=== PATIENT | female | born 1990 | race Caucasian/White ===

== ENCOUNTER 2020-01-13 20:18 | Emergency (ER) | payer SELFPAY ==
[2020-01-13 20:23] VITALS: BP 137/72; PULSE 59; RESP 16; TEMP 36.2; O2SAT 98; BMI 31.9
--- NOTE | 2020-01-13 20:26 | ED_ITS ---
HPI - Extremity Problem General: Chief complaint: Extremity Problem,Nontraumatic Stated complaint: right leg injury Time Seen by Provider: 01/13/20 20:23 Source: patient Mode of arrival: ambulatory Limitations: no limitations History of Present Illness: HPI Narrative: 29-year-old female comes in today with right lower leg pain on the lateral side. Patient reports that when she moves her ankle she feels stiffness and grating. Patient denies any injury. Patient has reported a change in activity to where she is working to jobs a day for the last couple of weeks where she stands 17 hours on her feet. Patient reports pain started last week. Patient appears well. Patient appears no acute distress. MD Complaint: extremity pain Review of Systems General: Reports: 10 or more systems reviewed and unremarkable except in HPI and below Musc: Reports: extremity pain PFSH ED PFSH: Medical History (Updated 01/13/20 @ 20:39 by CHASE Cam) Chronic post-traumatic stress disorder (PTSD) Moderate episode of recurrent major depressive disorder Family History (Updated 02/15/19 @ 16:10 by Isabel Villavicencio RN) Mother Thyroid condition Breast cancer Hypertension Grandfather Thyroid condition Maternal Family/Other Thyroid condition Maternal Aunt Father Lymphoma Grandmother Hypertension Maternal Social History (Updated 03/23/19 @ 10:58 by David Garduno LPN) Smoking and tobacco status: current every day smoker cigarettes Packs smoked per day: 1 Years cigarettes smoked: 21 Quit status (tobacco): has tried quititng Number of times tried to quit tobacco: 3 Second hand smoke exposure: No Smoking risk assessment/counseling performed?: Yes Tobacco counseling given: counseling >3 minutes Alcohol intake: never Additional social history: Well balanced diet Physical Exam Const: COMMON NORMALS: no acute distress and patient oriented x3 GENERAL APPEARANCE: cooperative HENMT: COMMON NORMALS: normocephalic and Normal external nose present HEAD & SCALP: normal to inspection and normocephalic NOSE: Normal external nose present Eye: GENERAL EYE: appearance normal, both eyes and all related structures Neck/C-Spine: COMMON NORMALS: full ROM Chest: COMMONS NORMALS: normal inspection of the chest Resp: COMMON NORMALS: normal respiratory effort EFFORT & INSPECTION: Yes able to speak in complete sentences Cardio: COMMON NORMALS: regular rate and regular rhythm RATE: regular rate RHYTHM: regular rhythm GI: COMMON NORMALS: non-tender Back/Pelvis: COMMON NORMALS: thoracic and lumbar spine normal to inspection Extremity: NARRATIVE EXTREMITY EXAM: Tenderness noted to the distal lateral right lower leg. Mild swelling is noted to the area of tenderness. No obvious deformity is noted in the bone. Distal pulses are intact. Capillary refill is normal. Neuro: COMMON NORMALS: patient oriented x3 and moves all extremities Psych: COMMON NORMALS: mental status grossly normal and cooperative Skin: COMMON NORMALS: no rashes or lesions noted GENERAL SKIN EXAM: no rashes or lesions noted Course Vital Signs: Vital signs: Vital Signs Temperature 97.2 F L 01/13/20 20:23 Pulse Rate 59 L 01/13/20 20:23 Respiratory Rate 16 01/13/20 20:23 Blood Pressure 137/72 01/13/20 20:23 Pulse Oximetry 98 01/13/20 20:23 MDM - Extremity (Nontraumatic) MDM Narrative: Medical decision making narrative: Patient comes in with complaints of right lower leg pain. On exam there is some mild tenderness and swelling to the right lateral distal leg. Normal range of motion is noted with activity. Pulses are intact. Differential diagnosis includes but not limited to shinsplints, tendinitis, sprain. Patient was started on diclofenac for pain and inflammation. Patient was written for orthopedic boot to support the ankle and keep it in the neutral position for concerns of tendinitis. Patient reports understanding of care plan and need for follow-up or return to the ER. Discharge Plan Discharge Patient Disposition: Home Clinical Impression: Calcific tendinitis, right lower leg Condition: Stable Prescriptions: New diclofenac sodium 75 mg tablet,delayed release (DR/EC) 75 mg PO BID Qty: 20 RF: 0 No Action fluoxetine [Prozac] 20 mg capsule 20 mg PO DAILY Qty: 30 RF: 1 hydroxyzine pamoate 50 mg capsule 50 mg PO BID PRN (Reason: anxiety) Qty: 60 RF: 1 buspirone 10 mg tablet 10 mg PO BID Qty: 60 RF: 1 Discharge Orders: Discharge Order (Routine); Ordered 01/13/20 Ordered By: Juancho Mack Discharge Diet: Usual diet Discharge Activity: Increase activity as tolerated Patient Instructions: Tendinitis (ED) Activity Restrictions/Additional Instructions: Activity as tolerated. Wear orthopedic walking boot for the next 2 weeks. Wear shoes which have good cushion and support. Follow-up with primary care for further treatment and evaluation. Follow-up with mechanical lead for further treatment and evaluation. Return to the emergency department for new concerns. Coding Level of Care Code ED [employer] Administrator for Andreas Torre Exam Comprehensive
== END 2020-01-13 20:52 | disposition home or self-care (01) ==
PROVIDERS: Emergency Provider Nurse Practitioner Family
DX: M65.261 Calcific tendinitis, right lower leg (principal); F17.210 Nicotine dependence, cigarettes, uncomplicated
CPT/HCPCS: 12345; 99281; 99282

== ENCOUNTER 2022-07-11 09:50 | Emergency (ER) | payer MEDICAID, SELFPAY ==
[2022-07-11 10:17] VITALS: BP 121/84; PULSE 68; RESP 18; TEMP 36.6; O2SAT 98; BMI 30.3
--- NOTE | 2022-07-11 10:46 | ED_ITS ---
HPI - Nausea/Vomiting/Diarrhea General: Chief complaint: Nausea/Vomiting/Diarrhea Stated complaint: n/v 2xmonths, tingling fingers Time Seen by Provider: 07/11/22 09:51 Source: patient Mode of arrival: ambulatory Limitations: no limitations History of Present Illness: Patient is a nice 32-year-old female presents to ED today with complaints of nausea, vomiting, and epigastric discomforts over the past 2 months or so. She states nausea seems to be worse in the morning when she wakes up and states a bout 50% of the day she will actively vomit in the mornings. She states nausea seems to slowly improve as the day progresses. She states she feels like she has not been able to eat adequately secondary to the discomfort she gets in her abdomen and due to her lack of appetite secondary to the nausea. She feels like her symptoms are exacerbated by eating greasy/spicy foods. She states she has been eating broccoli salads this seems to not aggravate her symptoms. She also reports damion colored stools. She reports chronic ibuprofen use stating she has been using approximately 800 mg of ibuprofen daily over the past 2 years. Also reports chronic marijuana use and vaping. She has not noticed any bloody emesis. Denies any episodes of black or tarry stools. Denies alcohol use. MD elicited complaint: nausea, vomiting and abdominal pain Onset (ago): month(s) Associated nausea: Yes Associated abdominal pain: Yes Location of pain: Epigastric Radiation: epigastric Pain consistency: intermittent Severity: mild Exacerbating factors: eating Relieving factors: none Context: marijuana use Associated symtoms: Reports no associated symptoms and nausea; Denies chest pain, dizziness, dysuria, fatigue, headache(s), malaise, palpitations or syncope Review of Systems Const: Denies: fever(s), chills, body aches, fatigue or malaise Card: Denies: chest pain, palpitations, irregular heart rhythm, lightheadedness, syncope or dyspnea on exertion Resp: Denies: dyspnea, productive cough or pain on inspiration GI: Reports: abdominal pain, nausea, vomiting and white/light colored stool; Denies: heartburn, diarrhea, GI cramping or rectal pain : Denies: flank pain or dysuria Musc: Denies: neck pain, back pain, extremity pain, extremity swelling or joint pain Skin/Breast: Denies: rash Neuro: Denies: headache(s) or dizziness PFSH ED 2 PFSH: Medical History Chronic post-traumatic stress disorder (PTSD) Moderate episode of recurrent major depressive disorder Family History Mother Thyroid condition Breast cancer Hypertension Grandfather Thyroid condition Maternal Family/Other Thyroid condition Maternal Aunt Father Lymphoma Grandmother Hypertension Maternal Social History Smoking and tobacco status: current every day smoker cigarettes Packs smoked per day: 1 Years cigarettes smoked: 21 Quit status (tobacco): has tried quititng Number of times tried to quit tobacco: 3 Second hand smoke exposure: No Smoking risk assessment/counseling performed?: Yes Tobacco counseling given: counseling >3 minutes Alcohol intake: never Substance/Drug Use: never Additional social history: Well balanced diet Physical Exam Const: COMMON NORMALS: no acute distress, average body habitus, patient oriented x3, no limitations, healthy appearing, alert and well nourished GENERAL APPEARANCE: cooperative Chest: COMMONS NORMALS: normal inspection of the chest and normal palpation of entire chest wall Resp: COMMON NORMALS: normal respiratory effort and clear to auscultation bilaterally AUSCULTATION: clear to auscultation bilaterally Cardio: COMMON NORMALS: regular rate and regular rhythm RATE: regular rate RHYTHM: regular rhythm GI: COMMON NORMALS: Normal to inspection, nondistended, normoactive bowel sounds present, Soft to palpation, No hepatosplenomegaly present and no masses INSPECTION: Yes normal to inspection AUSCULTATION: Yes normoactive bowel sounds PALPATION: Yes Soft to palpation, Yes Tenderness to palpation present (GI) (Mild epigastric/LUQ; nonsurgical examination), No Guarding due to palpation present (GI), No Rigid due to palpation and Yes No hepatosplenomegaly present : COMMON NORMALS: Yes no CVA tenderness BLADDER/KIDNEY EXAM: Yes no CVA tenderness Back/Pelvis: COMMON NORMALS: no CVA tenderness Extremity: COMMON NORMALS: normal to inspection GENERAL: Yes normal exam except as noted Neuro: JULIA COMA SCALE: document GCS findings Julia coma scale eye opening: Spontaneous [place] coma scale verbal response: Orientated [place] coma scale motor response: Obey commands Julia coma scale total score: 15 COMMON NORMALS: patient oriented x3 SENSORIUM/ORIENTATION: Yes alert Skin: COMMON NORMALS: no rashes or lesions noted GENERAL SKIN EXAM: no rashes or lesions noted Course Vital Signs: Vital signs: Vital Signs Temperature 97.9 F 07/11/22 10:17 Pulse Rate 68 07/11/22 10:17 Respiratory Rate 18 07/11/22 10:17 Blood Pressure 121/84 07/11/22 10:17 Pulse Oximetry 98 07/11/22 10:17 Oxygen Delivery Me thod Room Air 07/11/22 10:17 MDM - Nausea/Vomiting/Diarrhea Medical Decision Making Patient appears no acute distress. She is some minor tenderness to her epigastric region and left upper quadrant but exam is nonsurgical. Blood work overall is nonactionable. Her liver enzymes are normal. Lipase is normal. Symptoms could be secondary to chronic ibuprofen use so this is recommended to be discontinued. Certainly chronic marijuana/vaping use can cause chronic nausea and vomiting. I think symptoms would be less likely secondary to a biliary colic picture. At this time I will place patient on famotidine and pantoprazole. Recommend follow-up with her primary care provider in approximately 2 weeks. Discussed if symptoms do not seem to be improving they can evaluate the need for endoscopy and/or CT imaging. Return to ED precautions given. Lab Data 07/11/22 10:55 07/11/22 10:55 Laboratory Results WBC 5.0 10^3/uL (4.0-10.0) 07/11/22 10:55 RBC 4.72 10^6/uL (4.1-5.3) 07/11/22 10:55 Hgb 13.0 g/dL (11.5-15.3) 07/11/22 10:55 Hct 41.1 % (37.0-47.0) 07/11/22 10:55 MCV 87.1 fl (81-99) 07/11/22 10:55 MCH 27.5 pg (28.0-34.0) L 07/11/22 10:55 MCHC 31.6 g/dL (30.0-36.0) 07/11/22 10:55 RDW 12.9 % (12.1-15.1) 07/11/22 10:55 Plt Count 258 10^3/cmm (130-400) 07/11/22 10:55 MPV 9.6 fL (7.4-10.4) 07/11/22 10:55 Neut % (Auto) 50.7 % 07/11/22 10:55 Lymph % (Auto) 37.1 % 07/11/22 10:55 [place] % (Auto) 9.8 % 07/11/22 10:55 Eos % (Auto) 1.8 % 07/11/22 10:55 Baso % (Auto) 0.4 % 07/11/22 10:55 Neut # (Auto) 2.54 10^3/uL (1.8-7.7) 07/11/22 10:55 Lymph # (Auto) 1.9 10^3/uL (0.8-4.8) 07/11/22 10:55 [place] # (Auto) 0.5 10^3/uL (0.2-0.9) 07/11/22 10:55 Eos # (Auto) 0.1 10^3/uL (0.0-0.8) 07/11/22 10:55 Baso # (Auto) 0.0 10^3/uL (0.0-0.1) 07/11/22 10:55 Nucleated RBC % (auto) 0 % 07/11/22 10:55 Nucleated RBCs # 0.0 /100WBC 07/11/22 10:55 Sodium 140 mmol/L (136-145) 07/11/22 10:55 Potassium 3.4 mmol/L (3.5-5.1) L 07/11/22 10:55 Chloride 107 mmol/L (98-107) 07/11/22 10:55 Carbon Dioxide 21 mmol/L (22-29) L 07/11/22 10:55 Anion Gap 15.4 (5-19) 07/11/22 10:55 BUN 9 mg/dL (6-20) 07/11/22 10:55 Creatinine 0.5 mg/dL (0.5-0.9) 07/11/22 10:55 GFR Calculation 143.0 mL/min (90-130) H 07/11/22 10:55 Glucose 91 mg/dL (65-115) 07/11/22 10:55 Calculated Osmolality 288 mOsm/kg (285-295) 07/11/22 10:55 Calcium 8.8 mg/dL (8.5-10.5) 07/11/22 10:55 Total Bilirubin 0.9 mg/dL (0.15-1.2) 07/11/22 10:55 AST 14 U/L (0-32) 07/11/22 10:55 ALT 15 U/L (0-33) 07/11/22 10:55 Alkaline Phosphatase 45 U/L (35-105) 07/11/22 10:55 Total Protein 7.1 g/dL (6.6-8.7) 07/11/22 10:55 Albumin 4.3 g/dL (3.5-5.2) 07/11/22 10:55 Globulin 2.8 g/dL (1.3-4.6) 07/11/22 10:55 Lipase 26 U/L (13-60) 07/11/22 10:55 HCG, Qual Negative (Negative) 07/11/22 10:55 Discharge Plan Discharge Patient Disposition: Home Clinical Impression: Nausea and vomiting Qualifiers: Vomiting type: unspecified Qualified Code(s): R11.2 - Nausea with vomiting, unspecified Condition: Stable Prescriptions: New famotidine 20 mg tablet 20 mg PO BID 28 Days Qty: 56 0RF pantoprazole 40 mg tablet,delayed release (DR/EC) 40 mg PO DAILY 28 Days Qty: 28 0RF No Action ibuprofen 200 mg Capsule 800 mg PO Q6H PRN (Reason: Pain) Discharge Orders: Discharge ED (Routine); Ordered 07/11/22 Ordered By: Krystle Deluna Patient Instructions: Acute Nausea and Vomiting (DC), Medicinal Use of Cannabis (ED) Coding Level of Care Code ED Head Inspector for Danielg Nicho
[2022-07-11 11:04] LABS: Basophils % 0.4 %; Eosinophils # 0.1 10^3/uL (0.0-0.8); Eosinophils % 1.8 %; Hematocrit 41.1 % (37.0-47.0); Lymphocytes # 1.9 10^3/uL (0.8-4.8); Lymphocytes % 37.1 %; Mean Corpuscular HGB Conc 31.6 g/dL (30.0-36.0); Mean Corpuscular Hemoglobin 27.5 pg (28.0-34.0); Mean Corpuscular Volume 87.1 fl (81-99); Mean Platelet Volume 9.6 fL (7.4-10.4); Monocytes # 0.5 10^3/uL (0.2-0.9); Monocytes % 9.8 %; Neutrophils # 2.54 10^3/uL (1.8-7.7); Neutrophils % 50.7 %; Nucleated Red Blood Cells % 0 %; Platelet Count 258 10^3/cmm (130-400); Red Blood Count 4.72 10^6/uL (4.1-5.3); Red Cell Distribution Width 12.9 % (12.1-15.1)
[2022-07-11 11:20] LABS: HCG, Serum Qual Negative (Negative)
[2022-07-11 11:22] LABS: Alanine Aminotransferase 15 U/L (0-33); Albumin Level 4.3 g/dL (3.5-5.2); Alkaline Phosphatase 45 U/L (35-105); Anion Gap 15.4 (5-19); Aspartate Amino Transferase 14 U/L (0-32); Blood Urea Nitrogen 9 mg/dL (6-20); Calcium 8.8 mg/dL (8.5-10.5); Carbon Dioxide 21 mmol/L (22-29); Chloride 107 mmol/L (98-107); Creatinine Clr Calc Pharmacy 177.7095; Globulin 2.8 g/dL (1.3-4.6); Glucose 91 mg/dL (65-115); Lipase 26 U/L (13-60); Osmolality Calculated 288 mOsm/kg (285-295); Potassium 3.4 mmol/L (3.5-5.1); Sodium 140 mmol/L (136-145); Total Bilirubin 0.9 mg/dL (0.15-1.2); Total Protein 7.1 g/dL (6.6-8.7)
[2022-07-11 12:37] LABS: Add Urine Microscopic? NO; Glucose Urine UA Norm (Normal); Ketones Urine 1+ (Negative); Protein Urine Neg (Negative); Specific Gravity, Urine 1.015 (1.005-1.030); Urine Appearance Clear (CLEAR); Urine Color Yellow (Yellow); pH Urine 8 (5-7)
[2022-07-11 12:38] LABS: Bilirubin Urine Neg (Negative); Blood Urine Neg (Negative); Leukocyte Esterase Urine Negative (Negative); Nitrate Urine Negative (Negative); Sulfosalicylic Acid Urine Negative (Negative); Urobilinogen Urine Norm (Negative)
[2022-07-11 12:39] LABS: Charge for UA Resulting for Rev
--- NOTE | 2022-07-18 15:20 | DCPLANNER ---
TCM called patient due to no primary care physician - patient stated that they see Virgie Fontana
== END 2022-07-11 12:41 | disposition home or self-care (01) ==
PROVIDERS: Emergency Provider Physician Assistant; PCP Family Medicine
DX: R11.2 Nausea with vomiting, unspecified (principal); F17.210 Nicotine dependence, cigarettes, uncomplicated
CPT/HCPCS: 80053; 81003; 83690; 84703; 85025; 99283

== ENCOUNTER → 2024-02-16 10:33 | Outpatient (BNVA) | payer BC, SELFPAY | PROVIDERS: PCP Family Medicine; Visit Provider Nurse Practitioner Women's Health | DX: Z32.01 Encounter for pregnancy test, result positive (principal) | CPT/HCPCS: 76801; 80307; 81025; 84702; 85025; 86592; 86762; 86803; 86850; 86900; 87086; 87340; 87491; 87591; 87661; 87806 ==

== ENCOUNTER → 2024-03-08 13:59 | Outpatient (BNVA) | payer BC, SELFPAY | PROVIDERS: PCP Family Medicine; Visit Provider Nurse Practitioner Women's Health | DX: Z34.90 Encounter for supervision of normal pregnancy, unspecified, unspecified trimester (principal); Z34.80 Encounter for supervision of other normal pregnancy, unspecified trimester | CPT/HCPCS: 82105; 84315 ==

== ENCOUNTER → 2024-04-14 09:41 | Outpatient (BNVA) | payer MEDICAID, SELFPAY | PROVIDERS: PCP Family Medicine; Visit Provider Obstetrics & Gynecology | DX: Z34.90 Encounter for supervision of normal pregnancy, unspecified, unspecified trimester (principal) | CPT/HCPCS: 76805; 84315; 87624 ==

== ENCOUNTER 2024-05-11 07:49 | Oncology outpatient (recurring) (ONCR) | payer MEDICAID, SELFPAY ==
[2024-04-28 16:46] LABS: Basophils % 0.2 %; Eosinophils # 0.1 10^3/uL (0.0-0.8); Hematocrit 33.9 % (36-47); Lymphocytes # 2.4 10^3/uL (0.8-4.8); Lymphocytes % 20.1 %; Mean Corpuscular HGB Conc 32.7 g/dL (30-55); Mean Corpuscular Hemoglobin 28.8 pg (27-33); Mean Corpuscular Volume 88.1 fl (85-98); Mean Platelet Volume 9.4 fL (7.4-10.4); Monocytes # 0.8 10^3/uL (0.2-0.9); Monocytes % 6.6 %; Neutrophils # 8.45 10^3/uL (1.8-7.7); Neutrophils % 71.7 %; Nucleated Red Blood Cells % 0 %; Platelet Count 332 10^3/cmm (157-399); Red Blood Count 3.85 10^6/uL (3.85-5.65); Red Cell Distribution Width 12.5 % (12.1-15.1); Reticulocyte % 1.5 % (0.5-2.0); White Blood Count 11.79 10^3/uL (3.29-11.43)
[2024-04-28 17:11] LABS: Alanine Aminotransferase 14 U/L (0-33); Albumin Level 3.5 g/dL (3.5-5.2); Alkaline Phosphatase 50 U/L (35-105); Anion Gap 12.4 (5-19); Aspartate Amino Transferase 14 U/L (0-32); Blood Urea Nitrogen 4 mg/dL (6-20); Calcium 8.2 mg/dL (8.5-10.5); Carbon Dioxide 19 mmol/L (22-29); Chloride 108 mmol/L (98-107); Ferritin 9 ng/mL (15-150); Globulin 2.6 g/dL (1.3-4.6); Glomerular Filtration Rate 254.7 mL/min (90-130); Glucose 79 mg/dL (65-115); Iron 34 ug/dL (37-145); Lactate Dehydrogenase 128 U/L (135-214); Osmolality Calculated 278 mOsm/kg (285-295); Percent Saturation 9.3 % (20-50); Potassium 3.4 mmol/L (3.5-5.1); Sodium 136 mmol/L (136-145); Total Bilirubin 0.4 mg/dL (0.15-1.2); Total Iron Binding Capacity 363 mcg/dl; Total Protein 6.1 g/dL (6.6-8.7); Unsaturated Iron Binding 329 ug/dL (112-347)
[2024-04-28 17:26] LABS: Vitamin B12 279 pg/mL (232-1245)
[2024-04-28 17:30] LABS: Folate Level 12.8 ng/mL (4.8-37.3)
[2024-05-04 16:09] LABS: HPLC Confirms; Hematocrit 35.3 % (35.0-45.0); Hemoglobin 11.3 g/dL (11.7-15.5); Hemoglobinopathy Ferritin 6 ng/mL (16-154); Hemoglobinopathy MCH 28.6 pg (27.0-33.0); Hemoglobinopathy MCV 89.4 fL (80.0-100.0); Hemoglobinopathy RDW 12.3 % (11.0-15.0); Red Blood Cell Count 3.95 Mill/uL (3.80-5.10)
== END 2024-05-17 23:59 | disposition home or self-care (01) ==
PROVIDERS: Internal Medicine; Absent Provider Obstetrics & Gynecology; PCP Family Medicine; Visit Provider Internal Medicine Medical Oncology
DX: Z53.9 Procedure and treatment not carried out, unspecified reason (principal)
CPT/HCPCS: 80053; 82607; 82728; 82746; 83010; 83020; 83540; 83550; 83615; 85014; 85018; 85025; 85041; 85045

== ENCOUNTER 2024-06-15 08:00 | Oncology outpatient (recurring) (ONCR) | payer MEDICAID, SELFPAY ==
[2024-05-25] MEDS: iron sucrose 200 MG in sodium chloride 0.9% (100 ml) 100 ML IV (15:16)
[2024-05-25 15:56] VITALS: BP 94/63; PULSE 65; RESP 18; TEMP 36.6; O2SAT 90
[2024-06-01] MEDS: iron sucrose 200 MG in sodium chloride 0.9% (100 ml) 100 ML IV (08:45)
[2024-06-01 09:27] VITALS: BP 118/75; PULSE 78; RESP 16; TEMP 36.7; O2SAT 97
[2024-06-08] MEDS: iron sucrose 200 MG in sodium chloride 0.9% (100 ml) 100 ML IV (13:47)
[2024-06-08 14:34] VITALS: BP 125/77; PULSE 81; RESP 16; TEMP 36.1; O2SAT 99
[2024-06-15] MEDS: iron sucrose 200 MG in sodium chloride 0.9% (100 ml) 100 ML IV (08:14)
== END 2024-06-16 23:59 | disposition home or self-care (01) ==
PROVIDERS: Absent Provider Obstetrics & Gynecology; PCP Family Medicine; Visit Provider Internal Medicine
DX: Z53.9 Procedure and treatment not carried out, unspecified reason; D50.9 Iron deficiency anemia, unspecified; Z79.899 Other long term (current) drug therapy
CPT/HCPCS: 82950; 84315; 85025; 87086; 96365; J1756

== ENCOUNTER 2024-06-22 12:59 | Oncology outpatient (recurring) (ONCR) | payer MEDICAID, SELFPAY ==
[2024-06-22] MEDS: sodium chloride 0.9% 250 ML 75 ML IV (13:14)
[2024-06-22 13:15] VITALS: BP 118/71; PULSE 87; RESP 17; TEMP 36.9; O2SAT 99
[2024-06-22] MEDS: iron sucrose 200 MG in sodium chloride 0.9% (100 ml) 100 ML 225 MG IV (13:26)
== END 2024-07-17 23:59 | disposition home or self-care (01) ==
LOC: ONCMED 12:59
PROVIDERS: Absent Provider Obstetrics & Gynecology; PCP Family Medicine; Visit Provider Internal Medicine
DX: D50.9 Iron deficiency anemia, unspecified (principal); Z79.899 Other long term (current) drug therapy
CPT/HCPCS: J1756; J7050

== ENCOUNTER 2024-07-20 14:27 | Oncology outpatient (recurring) (ONCR) | payer MEDICAID, SELFPAY ==
[2024-07-20 15:14] LABS: Basophils % 0.3 %; Eosinophils # 0.1 10^3/uL (0.0-0.8); Eosinophils % 0.8 %; Hematocrit 37.2 % (36-47); Lymphocytes # 1.9 10^3/uL (0.8-4.8); Lymphocytes % 16.2 %; Mean Corpuscular HGB Conc 33.1 g/dL (30-55); Mean Corpuscular Volume 87.7 fl (85-98); Mean Platelet Volume 9.4 fL (7.4-10.4); Monocytes # 0.6 10^3/uL (0.2-0.9); Monocytes % 5.2 %; Neutrophils # 9.21 10^3/uL (1.8-7.7); Neutrophils % 77.1 %; Nucleated Red Blood Cells % 0 %; Platelet Count 304 10^3/cmm (157-399); Red Blood Count 4.24 10^6/uL (3.85-5.65); Red Cell Distribution Width 15.5 % (12.1-15.1); White Blood Count 11.95 10^3/uL (3.29-11.43)
[2024-07-20 15:50] LABS: Alanine Aminotransferase 13 U/L (0-33); Albumin Level 3.4 g/dL (3.5-5.2); Alkaline Phosphatase 91 U/L (35-105); Anion Gap 16.2 (5-19); Aspartate Amino Transferase 15 U/L (0-32); Blood Urea Nitrogen 5 mg/dL (6-20); Calcium 8.7 mg/dL (8.5-10.5); Carbon Dioxide 19 mmol/L (22-29); Chloride 105 mmol/L (98-107); Ferritin 30 ng/mL (15-150); Globulin 2.7 g/dL (1.3-4.6); Glomerular Filtration Rate 182.7 mL/min (90-130); Glucose 129 mg/dL (65-115); Iron 81 ug/dL (37-145); Osmolality Calculated 283 mOsm/kg (285-295); Percent Saturation 23.3 % (20-50); Potassium 3.2 mmol/L (3.5-5.1); Sodium 137 mmol/L (136-145); Total Bilirubin 0.7 mg/dL (0.15-1.2); Total Iron Binding Capacity 347 mcg/dl; Total Protein 6.1 g/dL (6.6-8.7); Unsaturated Iron Binding 266 ug/dL (112-347)
== END 2024-08-16 23:59 | disposition home or self-care (01) ==
LOC: ONCMED 14:28
PROVIDERS: Nurse Practitioner Family; Absent Provider Obstetrics & Gynecology; PCP Family Medicine; Visit Provider Internal Medicine
DX: D50.9 Iron deficiency anemia, unspecified (principal); Z79.899 Other long term (current) drug therapy; Z3A.35 35 weeks gestation of pregnancy; L52 Erythema nodosum; D64.9 Anemia, unspecified; R55 Syncope and collapse
CPT/HCPCS: 36415; 76816; 80053; 82728; 83540; 83550; 84315; 85025

== ENCOUNTER → 2024-07-29 09:16 | Outpatient (BNVA) | payer MEDICAID, SELFPAY | PROVIDERS: PCP Family Medicine; Visit Provider Nurse Practitioner Women's Health | DX: Z34.80 Encounter for supervision of other normal pregnancy, unspecified trimester (principal) | CPT/HCPCS: 84315; 87081 ==

== ENCOUNTER → 2024-08-05 09:01 | Outpatient (BNVA) | payer MEDICAID, SELFPAY | PROVIDERS: PCP Family Medicine; Visit Provider Obstetrics & Gynecology | DX: Z34.90 Encounter for supervision of normal pregnancy, unspecified, unspecified trimester (principal) | CPT/HCPCS: 84315 ==

== ENCOUNTER 2024-08-26 12:30 | Inpatient (IN) | payer MEDICAID, SELFPAY ==
[2024-08-26] VITALS (79 sets, daily range): BP systolic 101–187; BP diastolic 50–89; PULSE 58–184; RESP 12–17; TEMP 36.6–36.9; O2SAT 91–100; BMI 33.9
[2024-08-26 01:23] LABS: Hematocrit 36.7 % (36-47); Hemoglobin 12.50 g/dL (11.27-16.99); Mean Corpuscular HGB Conc 34.1 g/dL (30-55); Mean Corpuscular Hemoglobin 29.6 pg (27-33); Mean Corpuscular Volume 87.0 fl (85-98); Nucleated Red Blood Cells % 0 %; Platelet Count 339 10^3/cmm (157-399); Red Blood Count 4.22 10^6/uL (3.85-5.65); White Blood Count 11.65 10^3/uL (3.29-11.43)
[2024-08-26 01:31] LABS: PCP Screen Urine Negative (Negative)
[2024-08-26] MEDS: ROPivacaine premix 100 MG/50 ML PREMIX 13 MG EPIDURAL ×3 (02:45→16:10)
--- NOTE | 2024-08-26 02:47 | P.ANESASSM_ITS ---
Pre-Anesthetic Assessment Height/Weight: Height 1.68 m Weight 95.254 kg Pulse Resp BP Pulse Ox O2 Del Method 67 16 119/73 99 Room Air 08/26/24 02:41 08/26/24 01:28 08/26/24 02:41 08/26/24 02:36 08/26/24 00:57 Preop Diagnosis: IUP labor epidural Familial anesthetic complications: none Was Beta Lai taken within 24 hours: N/A Was Clonidine taken within 24 hours: N/A Social No alcohol and No tobacco Exam alert, oriented x 3 and clear to auscultation bilaterally Airway Mallampati: Class II Dentition: full History/ROS No significant history except as noted Pulmonary None reported CV/HEM Anemia None reported Hepatic None reported GI None reported Metabolic None reported Musc/skel None reported Neuropsych Depression Anesthetic Plan ASA status: 2 Anesthesia: Anesthesia Evaluation and Regional (specify below) (epidural ) Risk of > 500 ml blood loss (7ml/kg in children): Yes, adequate IV access and fluids planned Medications/Allergies Allergies Allergy/AdvReac Type Severity Reaction Status Date / Time No Known Allergies Allergy Verified 08/12/24 07:45 Current Medications Generic Name Dose Route Start Last Admin Trade Name Freq PRN Reason Stop Dose Admin Dextrose/Lactated Ringer's 1,000 mls @ 125 mls/hr 08/26/24 01:00 08/26/24 02:20 Dextrose 5%-Lactated Ringers IV 125 mls/hr .Q8H STEVENSON Administration Sodium Chloride 1,000 mls @ 999 mls/hr 08/26/24 00:57 08/26/24 02:20 Sodium Chloride 0.9% IV Infused .Q1H1M PRN Infusion See label comments PFSH Anesthesia Medical History Patient denies medical problems Patient denies any past medical history of hypertension, diabetes, heart, lung, liver, kidney, thyroid, bleeding, or clotting problems. Moderate episode of recurrent major depressive disorder Chronic post-traumatic stress disorder (PTSD) Surgical History History of tonsillectomy and adenoidectomy Hx of unilateral salpingectomy Left salpingectomy, performed 02/03/[address] Ulises Osman for tubal ectopic Family History Mother Thyroid disease Breast cancer Hypertension Hyperlipidemia Grandfather Thyroid disease Maternal Family/Other Thyroid disease Maternal Aunt Father Lymphoma Grandmother Hypertension Maternal Heart disease Social History Smoking and tobacco/nicotine status: current every day tobacco/nicotine user (vapes daily) cigarettes Packs smoked per day: 1 Years cigarettes smoked: 21 Quit status (tobacco/nicotine): has tried quititng Number of times tried to quit tobacco: 3 Second hand smoke exposure: No Alcohol intake: never Substance/Drug Use: never Additional social history: Well balanced diet Female Reproductive History : 4 Data Anesthesia 08/26/24 01:09 Short CBC 08/26/24 Range/Units 01:09 WBC 11.65 H (3.29-11.43) 10^3/uL Hgb 12.50 (11.27-16.99) g/dL Hct 36.7 (36-47) % MCV 87.0 (85-98) fl Plt Count 339 (157-399) 10^3/cmm Neut % (Auto) 69.3 % Neut # (Auto) 8.08 H (1.8-7.7) 10^3/uL Blood Bank 08/26/24 01:09 Blood Type A Positive Rho(D) Type Rh positive Antibody Screen Negative Anesthesia Procedures Epidural Time Out Performed: Yes Consents Signed: Procedure Consent Consent: requested by attending/covering physician, from patient, risks and benefits reviewed and patient agrees to proceed Lumbar Level: L4-L5 Epidural position: sitting Epidural procedure: sterile prep of area, 1% lidocaine to numb the area, 18 g needle, negative for paresthesia passed, neg for paresthesia, test dose given, 1.5% xylocaine 1:200k epi, 0.2% Ropivacaine bolus ml (5), placed PCEA, no systemic response, sterile dressing applied, L.U.D. no apparent complications and 0.2% Ropiavacaine @ mls/hr (13) Additional Comments: DEIDRA 5cm, catheter easily threaded to 5cm in the space. VS monitored throughout and remained stable. 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
--- NOTE | 2024-08-26 13:40 | PM.OBGYPN ---
CONTRACT ADMIN Subjective Subjective: Interval history: Fetus reassuring Patient comfortable with epidural Cervix: 6-7 cm / -2 station AROM, clear fluid Labor: Station: +1 Amniotic Membrane Status: Ruptured Monitor Mode: External Contraction Pattern: Regular Vitals/I&O/Wt Last Vital Signs Temp 98.0 F 08/26/24 23:28 Pulse 66 08/26/24 23:28 Resp 12 08/26/24 23:28 BP 106/56 08/26/24 23:28 Pulse Ox 97 08/26/24 23:28 O2 Del Method Room Air 08/26/24 23:28 08/26/24 08/26/24 08/27/24 14:59 22:59 06:59 Intake Total 1000 / 1000 991.583 / 1991.583 Output Total 1400 / 1400 Balance 1000 / 1000 -408.417 / 591.583 Weight last 48 hrs Weight 210 lb Physical Exam Urinary Catheter Management: Larson: Cath Placed During This Visit: yes, but has since been removed by the nurse Reason for Continuing Indwelling Catheter: Decision to DC Catheter Urinary Catheter Date of Insertion: 08/26/24 Urinary Catheter Time of Insertion: 03:23 Date Urinary Catheter Removed: 08/26/24 Time Urinary Catheter Discontinued: 16:12 Data 08/26/24 01:09 A&P Assessment and plan 1. Active labor at term: PDMP PDMP Reviewed: Not Reviewed Attestations Medical Necessity Statement*: patient at 40 w 3 d, admitted with active labor Coding Level of Care Code Acute Code for Chg Fwd Diagnoses Active labor at term
[2024-08-26] MEDS: ondansetron 2 mg/ML SDV 2 mL 4 MG IVP (14:09)
--- NOTE | 2024-08-26 17:05 | PM.DELIVERY ---
Delivery Note: Date of delivery: August 26, 2024 Pre-delivery diagnoses: 40 w 3 d active labor Post-delivery diagnoses: 40 w 3 d active labor vaginal delivery Procedure: vaginal delivery Op report anesthesia: Epidural Delivering Physician: Clay Ritter MD Estimated blood loss (mL): 300 Findings: , vigorous infant Cord gases obtained Normal placenta and cord Cord blood obtained No episiotomy / lacerations EBL: 300 cc No complications Pre-Delivery Course: normal labor course fetus reassuring throughout Delivery: vaginal Post-Delivery Status: good History History History 8 Term 4 0 Miscarriages/Ectopic 3 Living Children 4 Past Pregnancies Del. Date GA/Weeks Outcome Route Wt Inf Gender Labor Lgth Comp. Anesthesia Location Unknown spontaneous 03/21/07 42 live - full term Vaginal 7 lb 13 oz 12 hours 04/15/12 38 live - full term Vaginal 7 lb 1 oz Female 12/22/13 40 live - full term Vaginal 8 lb 6 oz Male Epidural. Delivered by Dr. Moyer at [facility]. 02/03/19 ectopic Delivery Date: Last Updated by: Isabel Villavicencio RN 2016 Delivery Date: 03/21/07 Last Updated by: Isabel Villavicencio RN Delivered by Dr. Diego at [facility] Delivery Date: 04/15/12 Last Updated by: Isabel Villavicencio RN Female ([place]) Epidural. Delivered by Dr. Ulises Osman at [facility] in [place], [place]. Complications: None. Delivery Date: 12/22/13 Last Updated by: Isabel Villavicnecio RN Male, 8 lbs. 6 oz., 40-2/7 weeks gestation. Epidural. Vaginal delivery. Delivered by Dr. Geoffrey Moyer at [facility] in [place], [place]. Induction for term . A&P Assessment and plan 1. Vaginal delivery: PDMP PDMP Reviewed: Not Reviewed Coding Level of Care Code Acute Code for Chg Fwd Diagnoses Vaginal delivery O80
--- NOTE | 2024-08-27 01:36 | P.HP_ITS ---
Providers/Chief Complaint 2 Admitting Physician: Clay Ritter MD Primary HOP WORKER: Clay Ritter MD Primary Care Provider: Virgie Fontana MD Chief Complaint: contractions HPI HOP WORKER History of Present Illness Shanna Obregon is a 34 year old female A3 EDC August 23, 2024 At 40 w 3 d No complications Presents to L&D c/o painful uterine contractions No bleeding or fluid leakage + movements h/o x three Present Details : 4 Para: 3 Labs Rubella: Immune RPR: Negative GBS: Negative Medications/Allergies Allergies Allergy/AdvReac Type Severity Reaction Status Date / Time No Known Allergies Allergy Verified 08/12/24 07:45 PFSH HOP WORKER 2 PFSH: Medical History Patient denies medical problems Patient denies any past medical history of hypertension, diabetes, heart, lung, liver, kidney, thyroid, bleeding, or clotting problems. Moderate episode of recurrent major depressive disorder Chronic post-traumatic stress disorder (PTSD) Surgical History History of tonsillectomy and adenoidectomy Hx of unilateral salpingectomy Left salpingectomy, performed 02/03/[address] Ulises Osman for tubal ectopic Family History Mother Thyroid disease Breast cancer Hypertension Hyperlipidemia Grandfather Thyroid disease Maternal Family/Other Thyroid disease Maternal Aunt Father Lymphoma Grandmother Hypertension Maternal Heart disease Social History Smoking and tobacco/nicotine status: current every day tobacco/nicotine user (vapes daily) cigarettes Packs smoked per day: 1 Years cigarettes smoked: 21 Quit status (tobacco/nicotine): has tried quititng Number of times tried to quit tobacco: 3 Second hand smoke exposure: No Alcohol intake: never Substance/Drug Use: never Additional social history: Well balanced diet Other Female Reproductive History: Hx Age of Menarche: 12 Duration of menses: 3-5 days Cycle Length: 28-30 days Personal Safety: Do you feel safe at home: Yes Victim of physical abuse: No Victim of emotional abuse: No Victim of sexual abuse: No Would you like help information on resources?: No History History History 2 8 Term 4 0 Miscarriages/Ectopic 3 Living Children 4 Past Pregnancies Del. Date GA/Weeks Outcome Route Wt Inf Gender Labor Lgth Comp. Anesth esia Location Unknown spontaneous 03/21/07 42 live - full term Vaginal 7 lb 13 oz 12 hours 04/15/12 38 live - full term Vaginal 7 lb 1 oz Female 12/22/13 40 live - full term Vaginal 8 lb 6 oz Male Epidural. Delivered by Dr. Moyer at [facility]. 02/03/19 ectopic Delivery Date: Last Updated by: Isabel Villavicencio RN 2016 Delivery Date: 03/21/07 Last Updated by: Isabel Villavicencio RN Delivered by Dr. Diego at [facility] Delivery Date: 04/15/12 Last Updated by: Isabel Villavicencio RN Female ([place]im[employer]) Epidural. Delivered by Dr. Ulises Osman at [facility] in [place], [place]. Complications: None. Delivery Date: 12/22/13 Last Updated by: Isabel Villavicencio RN Male, 8 lbs. 6 oz., 40-2/7 weeks gestation. Epidural. Vaginal delivery. Delivered by Dr. Geoffrey Moyer at [facility] in [place], [place]. Induction for term . Care MARCOS Calculator 2 Estimated Delivery Date Method Current WG Current Estimate 08/23/24 LMP (Certain) 40w 4d Other Estimates 08/25/24 Ultrasound #1 40w 2d Specific Issues/Plans * * DEPRESSION * ANEMIA: completed iron infusion with hematology * RECURRENT MISCARRIAGE * NAUSEA: reglan sent to pharmacy * UTI IN : + Nitrates on 05/25/24, UA culture contaminated, repeat culture clear * ERYTHEMA NODOSUM: presented with lesion on bilateral lower legs that were red and painful in nature, mometasone given for treatment Vitals/I&O/Wt Last Vital Signs Temp 98.0 F 08/26/24 23:28 Pulse 66 08/26/24 23:28 Resp 12 08/26/24 23:28 BP 106/56 08/26/24 23:28 Pulse Ox 97 08/26/24 23:28 O2 Del Method Room Air 08/26/24 23:28 08/26/24 08/26/24 08/27/24 14:59 22:59 06:59 Intake Total 1000 / 1000 991.583 / 1991.583 Output Total 1400 / 1400 Balance 1000 / 1000 -408.417 / 591.583 Weight last 48 hrs Weight 210 lb Physical Exam 2 Narrative: Weight 205 lbs; 5?6? VS normal General awake, alert Lungs: clear Cor: RRR Abd: nontender. FH 38 cm, cephalic Cervix: 6 cm / 90% / -3 / cephalic Ext: no edema External monitor: regular [facility] heart tracing good variability, + accelerations Urinary Catheter Management: Larson: Cath Placed During This Visit: yes, but has since been removed by the nurse Reason for Continuing Indwelling Catheter: Decision to DC Catheter Urinary Catheter Date of Insertion: 08/26/24 Urinary Catheter Time of Insertion: 03:23 Date Urinary Catheter Removed: 08/26/24 Time Urinary Catheter Discontinued: 16:12 Data 08/26/24 01:09 Results Labs OB ([facility]): 2 Obstetrics 07/20/24 Blood Type A Positive 08/26/24 Antibody Screen Negative 08/26/24 Hct, (36-47) 36.7 % 08/26/24 Hgb, (11.27-16.99) 12.50 g/dL 08/26/24 Rho(D) Type Rh positive 08/26/24 Plt Count, (157-399) 339 10^3/cmm 08/26/24 Hep Bs Antigen, (Nonreactive) Non-reactive 02/16/24 Hepatitis C Antibody, (Nonreactive) Non-reactive 01/19 Rubella IgG Antibody, (0.0-10.0) 19.9 IU/mL H 4 RPR, (Nonreactive) Nonreactive 02/16/24 HIV 1&2 Ab & HIV 1 Ag, (Non-Reactiv) Non-reactive Glucose 1 Hr 50 gm, (85-140) 134 mg/dL 06/08/24 Ser , Semi-Qnt 85653.00 mIU/mL 02/16/24 HCG, Qual, (Negative) Positive H 02/16/24 Urine Opiates Screen, (Negative) Negative ng/mL 5 Ur Barbiturates Screen, (Negative) Negative ng/mL 08/26 Ur Phencyclidine Scrn, (Negative) Negative ng/mL Ur Amphetamines Screen, (Negative) Negative ng/mL 08/26 U Benzodiazepines Scrn, (Negative) Negative ng/mL 08/26 Urine Cocaine Screen, (Negative) Negative ng/mL 5 U Marijuana (THC) Screen, (Negative) Positive ng/mL H 12/11 Micro Urine Specimen 06/08/24 Pap Smear Interpret See note 04/14/24 A&P Assessment and plan 1. : 40 w 3 d Active labor Fetus reassuring Admit Labor management h/o x three Rh + PDMP PDMP Reviewed: Not Reviewed Attestations 2 Medical Necessity Statement*: patient at 40 w 3 d with active labor Coding Level of Care Code Acute Code for Chg Fwd Diagnoses Z34.90
[2024-08-27 04:29] VITALS: BP 102/62; PULSE 69; RESP 16; TEMP 36.7; O2SAT 98
[2024-08-27 04:33] LABS: Hematocrit 34.6 % (36-47); Hemoglobin 11.70 g/dL (11.27-16.99); Mean Corpuscular HGB Conc 33.8 g/dL (30-55); Mean Corpuscular Hemoglobin 29.9 pg (27-33); Mean Corpuscular Volume 88.5 fl (85-98); Platelet Count 255 10^3/cmm (157-399); Red Blood Count 3.91 10^6/uL (3.85-5.65); White Blood Count 16.02 10^3/uL (3.29-11.43)
--- NOTE | 2024-08-27 08:23 | ANE.PACU2 ---
Inpatient post-anesthesia follow up: Airway intact: Yes Vital signs: Temperature 97.8 F Pulse Rate 66 Respiratory Rate 16 Blood Pressure 118/70 Pulse Oximetry 97 Oxygen Delivery Me thod Room Air Oxygen Flow Rate Fraction of Inspir ed Oxygen Hydration adequate: Yes Nausea and vomiting: No Pain level: 1 Mental status: Baseline Epidural Start/End: Epidural Start Date: 08/26/24 Epidural Start Time: 02:35 Epidural End Date: 08/26/24 Epidural End Time: 18:34
[2024-08-27] MEDS: PRENATAL VIT NO.130/IRON/FOLIC 1 EACH TABLET PO (08:34)
[2024-08-27 08:35] VITALS: BP 188/55; PULSE 69; RESP 17; TEMP 36.7; O2SAT 98
--- NOTE | 2024-08-27 12:05 | P.PN_ITS ---
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 fundus firm Ext: no edema; nontender PP Hgb 11.7 Urinary Catheter Management: Larson: Cath Placed During This Visit: yes, but has since been removed by the nurse Reason for Continuing Indwelling Catheter: Decision to DC Catheter Urinary Catheter Date of Insertion: 08/26/24 Urinary Catheter Time of Insertion: 03:23 Date Urinary Catheter Removed: 08/26/24 Time Urinary Catheter Discontinued: 16:12 Data 08/27/24 04:31 A&P Assessment and plan 1. Vaginal delivery: PPD #1 doing well discharge to home today instructions and precautions given call/return if fever, chills, headache, blurry vision, nausea, vomiting, abdominal pain; vaginal bleeding or discharge; shortness of breath, chest pain, leg pains or swelling; inability to void, perineal pain or swelling; feelings of depression or mood changes; thoughts of suicide or harming others; inability to care for baby. f/u in 6 weeks or PRN PDMP PDMP Reviewed: Not Reviewed Attestations 2 Medical Necessity Statement*: patient s/p vaginal delivery, plan to discharge to home today Coding Level of Care Code Acute Code for Chg Fwd Diagnoses Vaginal delivery O80
--- NOTE | 2024-08-27 12:10 | PM.OBGYDC ---
Discharge Providers BRAND EXECUTIVE Date of Admission: 08/26/24 12:30 Date of Discharge: 08/27/24 Attending Provider at Admission: Clay Ritter MD Attending Provider at Discharge: Clay Ritter MD Consults: none Primary BRAND EXECUTIVE: Clay Ritter MD Primary Care Provider: Virgie Fontana MD Diagnoses at Discharge Discharge Diagnosis 1. Vaginal delivery: Details from hospital stay: 34 y.o. A3 at 40 w 3 d no complications presented to L&D c/o painful contractions patient progressed to complete dilatation fetus was reassuring throughout patient delivered vaginally with no lacerations without any complications She had an uneventful course and was discharged to home on the first day Reason for Visit Reason for Visit: contractions Brief History: 34 y.o. A3 at 40 w 3 d no complications presented to L&D c/o painful contractions Hospital Course Hospital Course 34 y.o. A3 at 40 w 3 d no complications presented to L&D c/o painful contractions patient progressed to complete dilatation fetus was reassuring throughout patient delivered vaginally with no lacerations without any complications She had an uneventful course and was discharged to home on the first day Information Peripartum Data: Delivery Method: Vaginal Laceration description: None Episiotomy description: None complications: none Physical Exam Narrative: afebrile, VS normal comfortable, awake, alert Lungs: clear Cor: RRR Abd: soft, nontender. fundus firm Ext: no edema; nontender PP Hgb 11.7 Urinary Catheter Management: Larson: Cath Placed During This Visit: yes, but has since been removed by the nurse Reason for Continuing Indwelling Catheter: Decision to DC Catheter Urinary Catheter Date of Insertion: 08/26/24 Urinary Catheter Time of Insertion: 03:23 Date Urinary Catheter Removed: 08/26/24 Time Urinary Catheter Discontinued: 16:12 History History History 8 Term 4 0 Miscarriages/Ectopic 3 Living Children 4 Past Pregnancies Del. Date GA/Weeks Outcome Route Wt Inf Gender Labor Lgth Comp. Anesthesia Location Unknown spontaneous 03/21/07 42 live - full term Vaginal 7 lb 13 oz 12 hours 04/15/12 38 live - full term Vaginal 7 lb 1 oz Female 12/22/13 40 live - full term Vaginal 8 lb 6 oz Male Epidural. Delivered by Dr. Moyer at [facility]. 02/03/19 ectopic Delivery Date: Last Updated by: Isabel Villavicencio RN 2016 Delivery Date: 03/21/07 Last Updated by: Isabel Villavicencio RN Delivered by Dr. Diego at [facility] Delivery Date: 04/15/12 Last Updated by: Isabel Villavicencio RN Female ([place]imco) Epidural. Delivered by Dr. Ulises Osman at [facility] in [place], [place]. Complications: None. Delivery Date: 12/22/13 Last Updated by: Isabel Villavicencio RN Male, 8 lbs. 6 oz., 40-2/7 weeks gestation. Epidural. Vaginal delivery. Delivered by Dr. Geoffrey Moyer at [facility] in [place], [place]. Induction for term . Discharge Data Studies Completed and Pending Laboratory Results WBC 16.02 10^3/uL (3.29-11.43) H 08/27/24 04:31 RBC 3.91 10^6/uL (3.85-5.65) 08/27/24 04:31 Hgb 11.70 g/dL (11.27-16.99) 08/27/24 04:31 Hct 34.6 % (36-47) L 08/27/24 04:31 MCV 88.5 fl (85-98) 08/27/24 04:31 MCH 29.9 pg (27-33) 08/27/24 04:31 MCHC 33.8 g/dL (30-55) 08/27/24 04:31 RDW 13.9 % (12.1-15.1) 08/27/24 04:31 Plt Count 255 10^3/cmm (157-399) 08/27/24 04:31 MPV 9.3 fL (7.4-10.4) 08/27/24 04:31 Neut % (Auto) 69.3 % 08/26/24 01:09 Lymph % (Auto) 22.0 % 08/26/24 01:09 Davison % (Auto) 6.6 % 08/26/24 01:09 Eos % (Auto) 1.3 % 08/26/24 01:09 Baso % (Auto) 0.3 % 08/26/24 01:09 Neut # (Auto) 8.08 10^3/uL (1.8-7.7) H 08/26/24 01:09 Lymph # (Auto) 2.6 10^3/uL (0.8-4.8) 08/26/24 01:09 Davison # (Auto) 0.8 10^3/uL (0.2-0.9) 08/26/24 01:09 Eos # (Auto) 0.2 10^3/uL (0.0-0.8) 08/26/24 01:09 Baso # (Auto) 0.0 10^3/uL (0.0-0.1) 08/26/24 01:09 Nucleated RBC % (auto) 0 % 08/26/24 01:09 Nucleated RBCs # 0.0 /100WBC 08/26/24 01:09 Urine Color Yellow (Yellow) 08/26/24 01:10 Urine Appearance Clear (CLEAR) 08/26/24 01:10 Urine pH 7.0 (5-7) 08/26/24 01:10 Ur Specific Latham 1.010 (1.005-1.030) 08/26/24 01:10 Urine Protein Negative (Negative) 08/26/24 01:10 Urine Glucose (UA) Negative (Normal) 08/26/24 01:10 Urine Ketones Negative (Negative) 08/26/24 01:10 Urine Blood Negative (Negative) 08/26/24 01:10 Urine Nitrate Negative (Negative) 08/26/24 01:10 Urine Bilirubin Negative (Negative) 08/26/24 01:10 Urine Urobilinogen 1.0 mg/dL (Negative) 08/26/24 01:10 Ur Leukocyte Esterase Negative (Negative) 08/26/24 01:10 Urine RBC 0-2 /hpf (0-2) 08/26/24 01:10 Urine WBC 0-5 /hpf (0-5) 08/26/24 01:10 Ur Squamous Epith Cells 0-5 /hpf (0-5) 08/26/24 01:10 Amorphous Sediment Not Reportable 08/26/24 01:10 Urine Bacteria None seen /hpf (NONE) 08/26/24 01:10 Hyaline Casts 0-4 /lpf H 08/26/24 01:10 Urine Opiates Screen Negative ng/mL (Negative) 08/26/24 01:10 Ur Barbiturates Screen Negative ng/mL (Negative) 08/26/24 01:10 Ur Phencyclidine Scrn Negative ng/mL (Negative) 08/26/24 01:10 Ur Amphetamines Screen Negative ng/mL (Negative) 08/26/24 01:10 U Benzodiazepines Scrn Negative ng/mL (Negative) 08/26/24 01:10 Urine Cocaine Screen Negative ng/mL (Negative) 08/26/24 01:10 U Marijuana (THC) Screen Positive ng/mL (Negative) H 08/26/24 01:10 Blood Type A Positive 08/26/24 01:09 Rho(D) Type Rh positive 08/26/24 01:09 Antibody Screen Negative 08/26/24 01:09 Procedures Performed vaginal delivery Vitals Last Vital Signs Temp 97.8 F 08/27/24 16:59 Pulse 66 08/27/24 16:59 Resp 16 08/27/24 16:59 BP 118/70 08/27/24 16:59 Pulse Ox 97 08/27/24 16:59 O2 Del Method Room Air 08/27/24 16:59 Results Labs OB ([facility]): Obstetrics US 07/20/24 Blood Type A Positive 08/26/24 Antibody Screen Negative 08/26/24 Hct, (36-47) 34.6 % L 08/27/24 Hgb, (11.27-16.99) 11.70 g/dL 08/27/24 Rho(D) Type Rh positive 08/26/24 Plt Count, (157-399) 255 10^3/cmm 08/27/24 Hep Bs Antigen, (Nonreactive) Non-reactive 02/16/24 Hepatitis C Antibody, (Nonreactive) Non-reactive 02/16/24 Rubella IgG Antibody, (0.0-10.0) 19.9 IU/mL H 02/16/24 RPR, (Nonreactive) Nonreactive 02/16/24 HIV 1&2 Ab & HIV 1 Ag, (Non-Reactiv) Non-reactive 02/16/24 Glucose 1 Hr 50 gm, (85-140) 134 mg/dL 06/08/24 Ser , Semi-Qnt 04873.00 mIU/mL 02/16/24 HCG, Qual, (Negative) Positive H 02/16/24 Urine Opiates Screen, (Negative) Negative ng/mL 08/26/24 Ur Barbiturates Screen, (Negative) Negative ng/mL 08/26/24 Ur Phencyclidine Scrn, (Negative) Negative ng/mL 08/26/24 Ur Amphetamines Screen, (Negative) Negative ng/mL 08/26/24 U Benzodiazepines Scrn, (Negative) Negative ng/mL 08/26/24 Urine Cocaine Screen, (Negative) Negative ng/mL 08/26/24 U Marijuana (THC) Screen, (Negative) Positive ng/mL H 08/26/24 Micro Urine Specimen 06/08/24 Pap Smear Interpret See note 04/14/24 Discharge Plan Discharge Patient Disposition: Home Condition: Stable Discharge Order = DC NOW: Discharge Order (Routine); Ordered 08/27/24 Ordered By: Clay Ritter Referrals: Clay Ritter MD [Physician, BRAND EXECUTIVE] - 10/07/24 1:45 pm Referral Note: * Your appointment is on September at 1:45pm Discharge Diet: Usual diet Discharge Activity: Increase activity as tolerated Patient Instructions: Depression (DC), Bleeding (DC), Preeclampsia and Eclampsia After Delivery (GEN), Hemorrhage (DC), OB Discharge Report, OB Food/Drug Interaction Guide, Opioid Safety, OB Home Care, OB Proud Parent Packet, OB Vaginal Deliveries - [facility], Patient Portal & Tatiana Instructions Discharge Attestations BRAND EXECUTIVE Time Spent in Discharge Care*: less than 30 min Coding Level of Care Code Acute Code for Chg Fwd Diagnoses Vaginal delivery O80
[2024-08-27 13:01] LABS: Glucose Urine UA Negative (Normal); Nitrate Urine Negative (Negative); Specific Gravity, Urine 1.010 (1.005-1.030)
[2024-08-27 16:59] VITALS: BP 118/70; PULSE 66; RESP 16; TEMP 36.6; O2SAT 97
== END 2024-08-27 16:59 | disposition home or self-care (01) | DRG 807 ==
LOC: OPOB 16:30 → OBGYN 16:30
PROVIDERS: Admitting Provider Obstetrics & Gynecology; PCP Family Medicine; Visit Provider Obstetrics & Gynecology
DX: O48.0 Post-term pregnancy (principal); Z37.0 Single live birth; Z3A.40 40 weeks gestation of pregnancy
CPT/HCPCS: 36415; 51702; 59025; 59409; 80306; 81001; 85025; 85027; 86850; 86900; 96374; 99211; J2405; J2795; J7030; J7121; J9999

== ENCOUNTER 2025-01-18 05:46 | Day surgery (SDC) | payer MEDICAID, SELFPAY ==
[2025-01-18] VITALS (13 sets, daily range): BP systolic 98–121; BP diastolic 63–74; PULSE 43–63; RESP 17–23; TEMP 36.1–36.6; O2SAT 96–100; BMI 28.7
--- NOTE | 2025-01-18 00:45 | W.PM.OPSFHP ---
Same Day Surgery H&P Indication for Procedure/HPI DATE OF PROCEDURE: January 18, 2025 CHIEF COMPLAINT/INDICATIONFOR SURGICAL PROCEDURE: desires permanent sterilization PREOP DIAGNOSIS: desires permanent sterilization PLANNED PROCEDURE: Operation Date: 01/18/25 07:00 Proposed Procedures p Laparoscopic Salpingectomy(Bilateral) - Clay Ritter MD Medications/Allergies* Allergies/Adverse Reactions Allergy/AdvReac Type Severity Reaction Status Date / Time No Known Allergies Allergy Verified 10/07/24 13:57 Pertinent History/Comorbid Conditions* Medical History (Updated 10/31/24 @ 00:10 by Clay Ritter MD) Patient denies medical problems Patient denies any past medical history of hypertension, diabetes, heart, lung, liver, kidney, thyroid, bleeding, or clotting problems. Moderate episode of recurrent major depressive disorder Chronic post-traumatic stress disorder (PTSD) Surgical History (Updated 05/25/24 @ 13:58 by Mary Fitch NP) History of tonsillectomy and adenoidectomy Hx of unilateral salpingectomy Left salpingectomy, performed 02/03/[address] Ulises Osman for tubal ectopic Family History (Updated 02/16/24 @ 09:48 by Marta Coles RN) Heart disease Grandmother Hyperlipidemia Mother Lymphoma Father Breast cancer Mother Hypertension Mother Grandmother Maternal Thyroid disease Mother Grandfather Maternal Family/Other Maternal Aunt Social History Smoking and tobacco/nicotine status: current every day tobacco/nicotine user (vapes daily) cigarettes Packs smoked per day: 1 Years cigarettes smoked: 21 Quit status (tobacco/nicotine): has tried quititng Number of times tried to quit tobacco: 3 Second hand smoke exposure: No Alcohol intake: never Substance/Drug Use: never Additional social history: Well balanced diet Pertinent Exam Findings alert, oriented x 3, clear to auscultation bilaterally and regular rate & rhythm Recommendations Surgery/Procedure today Coding Level of Care Code Acute Code for Chg Fwd
[2025-01-18 06:24] LABS: OR HCG Qualitative Urine Negative (Negative)
--- NOTE | 2025-01-18 06:49 | ANES.PREANE2 ---
Pre-Anesthetic Assessment Height/Weight: Height 1.68 m Weight 80.739 kg Temp Pulse Resp BP Pulse Ox O2 Del Method 97.8 F 63 17 112/72 97 Room Air 01/18/25 06:11 01/18/25 06:11 01/18/25 06:11 01/18/25 06:11 01/18/25 06:11 01/18/25 06:11 Preop Diagnosis: desires permanent sterilization Operation Date: 01/18/25 07:00 Proposed Procedures p Laparoscopic Salpingectomy(Bilateral) - Clay Ritter MD Familial anesthetic complications: none Was Beta Lai taken within 24 hours: N/A Was Clonidine taken within 24 hours: N/A Last intake: Intake Last Liquid Date 01/17/25 Last Liquid Time 22:00 Last Solid Date 01/17/25 Last Solid Time 18:00 Social No alcohol and No tobacco Exam alert, oriented x 3, clear to auscultation bilaterally and regular rate & rhythm Anesthetic Plan ASA status: 1 Anesthesia: General Risk of > 500 ml blood loss (7ml/kg in children): No Medications/Allergies Home Medications ?Medication ?Instructions ?Recorded ?Confirmed ?Last Taken ?Type No Known Home Medications 01/18/25 01/18/25 Unknown History Allergies Allergy/AdvReac Type Severity Reaction Status Date / Time No Known Allergies Allergy Verified 10/07/24 13:57 Current Medications Generic Name Dose Route Start Last Admin Trade Name Freq PRN Reason Stop Dose Admin Sodium Chloride 1,000 mls @ 30 mls/hr 01/18/25 06:00 01/18/25 06:29 Sodium Chloride 0.9% IV 01/19/25 05:59 30 mls/hr .Q24H STEVENSON Administration PFSH Anesthesia Medical History (Updated 10/31/24 @ 00:10 by Clay Ritter MD) Patient denies medical problems Patient denies any past medical history of hypertension, diabetes, heart, lung, liver, kidney, thyroid, bleeding, or clotting problems. Moderate episode of recurrent major depressive disorder Chronic post-traumatic stress disorder (PTSD) Surgical History History of tonsillectomy and adenoidectomy Hx of unilateral salpingectomy Left salpingectomy, performed 02/03/[address] Ulises Osman for tubal ectopic Family History Mother Thyroid disease Breast cancer Hypertension Hyperlipidemia Grandfather Thyroid disease Maternal Family/Other Thyroid disease Maternal Aunt Father Lymphoma Grandmother Hypertension Maternal Heart disease Social History Smoking and tobacco/nicotine status: current every day tobacco/nicotine user (vapes daily) cigarettes Packs smoked per day: 1 Years cigarettes smoked: 21 Quit status (tobacco/nicotine): has tried quititng Number of times tried to quit tobacco: 3 Second hand smoke exposure: No Alcohol intake: never Substance/Drug Use: never Additional social history: Well balanced diet
--- NOTE | 2025-01-18 06:52 | W.PM.OPSUD ---
Surgery/Procedure H&P Update DATE OF PROCEDURE: January 18, 2025 DATE H&P PERFORMED: 10/07/24 H&P UPDATE INFORMATION: I have reviewed H&P completed within last 30 days, I have examined patient prior to procedure and No changes to prior documentation PREOP DIAGNOSIS: desires permanent sterilization PLANNED PROCEDURE: Operation Date: 01/18/25 07:00 Proposed Procedures p Laparoscopic Salpingectomy(Bilateral) - Clay Ritter MD
--- NOTE | 2025-01-18 09:10 | P.OP_ITS ---
Operative Report Date of procedure: January 18, 2025 Pre-op diagnosis: desires permanent sterilization Post-op diagnosis: same Post-op findings: normal uterus, tubes, and ovaries Procedure done: laparoscopic bilateral salpingectomy Implants: none Specimens removed/disposition: bilateral fallopian tube segments Surgeon: Clay Ritter MD Waistline Joiner: Neri Lopez MD Anesthesia: General Estimated blood loss (mL): 5 Complications: none Findings: see above Condition: stable Disposition: PACU Brief History: 34 y.o. desires permanent sterilization Procedure: The patient was taken to the OR and placed on the table. General endotracheal anesthesia was induced. The abdomen was then prepped and draped in the usual fashion. A 5 mm subumbilical skin incision was made. A 5 mm trocar with sheath was then inserted into the peritoneal cavity under direct visualization with the laparoscope. After confirming intraperitoneal position, pneumoperitoneum was achieved. Two separate 5 mm incisions were made in the right and left mid- quadrants. 5 mm trocars with sheaths were then inserted into the peritoneal cavity under direct visualization with the laparoscope. The right fallopian tube was then identified to its fimbrial end. Starting at the fimbrial end, the mesosalpinx was then coagulated and cut using the Ligasure. The right fallopian tube was excised and removed via one of the ports. This was sent to pathology. There was no bleeding seen. Similarly, the left fallopian tube was identified to its fimbrial end. The left fallopian tube was excised and removed, sent to pathology. There was no bleeding. All instruments were then removed from the peritoneal cavity after the pneumoperitoneum was allowed to escape. The skin incisions were closed using 3- O chromic in subcuticular fashion. Dermabond was applied. The patient was then placed supine and awakened, taken the the PACU in good condition. Postop condition: stable EBL: 5 cc Complications: none Sponge, needles, and instruments counts correct x two
[2025-01-18] MEDS: fentaNYL 50 mcg/mL INJ 2mL IVP (09:15)
--- NOTE | 2025-01-18 10:30 | ANE.PACU2 ---
Inpatient post-anesthesia follow up: Airway intact: Yes Vital signs: Temperature 97.8 F Pulse Rate 51 Respiratory Rate 19 Blood Pressure 108/66 Pulse Oximetry 98 Oxygen Delivery Me thod Room Air Oxygen Flow Rate 10 Fraction of Inspir ed Oxygen Hydration adequate: Yes Nausea and vomiting: No Pain level: 1 Mental status: Baseline
== END 2025-01-18 10:30 | disposition home or self-care (01) ==
PROVIDERS: Visit Provider Obstetrics & Gynecology
PROC: (CPT 58661; principal; 2025-01-18 07:00)
DX: Z30.2 Encounter for sterilization (principal); F43.12 Post-traumatic stress disorder, chronic; F33.9 Major depressive disorder, recurrent, unspecified; F17.290 Nicotine dependence, other tobacco product, uncomplicated; F17.210 Nicotine dependence, cigarettes, uncomplicated; Z80.3 Family history of malignant neoplasm of breast
CPT/HCPCS: 58661; 81025; 88302; A4216; J1100; J1885; J2250; J2405; J2704; J2710; J3010; J3490; J7030; J9999